=== PATIENT | female | born 1945 | race Caucasian/White ===

== ENCOUNTER 2024-02-28 11:55 | Inpatient (IN) | payer OTHER ==
[~2024-02-28] VITALS: Ht 160 cm; Wt 95.6 kg
[2024-02-28] MEDS: ASPirin 81 mg TAB PO ONE (12:34)
[2024-02-28 13:24] LABS: Basophils # (auto) 0 10 ^3/uL (0-0.2); Basophils % (auto) 0.5 % (0.0-2.0); Eosinophils # (auto) 0.1 10 ^3/uL (0-0.8); Eosinophils % (auto) 1.4 % (0.0-7.0); Hematocrit 48.1 % (36.0-46.0); Hemoglobin 15.4 g/dL (12.2-16.2); Lymphocytes # (auto) 2.3 10 ^3/uL (0.4-5.4); Lymphocytes % (auto) 26.3 % (10.0-50.0); Mean Corpuscular Hemoglobin 30.7 pg (28.0-32.0); Mean Corpuscular Volume 95.8 fL (80.0-100.0); Monocytes # (auto) 0.5 10 ^3/uL (0-1.3); Monocytes % (auto) 5.4 % (0.0-12.0); Neutrophils # (auto) 5.7 10 ^3/uL (1.6-8.6); Neutrophils % (auto) 66.4 % (37.0-80.0); Nucleated Red Blood Cells % 0.2 %; Red Blood Cells 5.02 10^6/uL (4.0-5.20); Red Cell Distribution Width 15.5 % (11.8-14.3); White Blood Cell 8.7 10^3/uL (4.4-10.8)
[2024-02-28 13:30] LABS: Chloride 111 mmol/L (98-107); Potassium 4.7 mmol/L (3.5-5.1); Sodium 144 mmol/L (136-145)
[2024-02-28 13:31] LABS: Anion Gap 9 (5-15); Carbon Dioxide 24 mmol/L (20-30)
[2024-02-28 13:32] LABS: Calcium 11.1 mg/dL (8.5-10.1)
[2024-02-28 13:36] LABS: Glucose 80 mg/dL (74-106)
[2024-02-28 13:37] LABS: BUN/Creatinine Ratio 16.1 (10.0-20.0); Blood Urea Nitrogen 18 mg/dL (9-23); Magnesium 2.2 mg/dL (1.6-2.6)
[2024-02-28] MEDS: dilTIAZem 25 MG/5 ML VIAL IV ONE (14:40)
[2024-02-28] MEDS ORDERED: ACETAMINOPHEN 325 MG TAB PO PRN (15:45)
[2024-02-28] MEDS ORDERED: FUROSEMIDE 40 MG/4 ML VIAL IV ONE (15:45)
[2024-02-28] MEDS ORDERED: MORPHINE SULFATE INJ 2 MG/ml SYRG IV PRN (15:45)
[2024-02-28] MEDS ORDERED: MORPHINE SULFATE 4 MG/ML SYR/VIAL IV PRN (15:45)
[2024-02-28] MEDS ORDERED: NITROGLYCERIN 0.4 MG SL TAB SL PRN ×2 (15:45)
[2024-02-28 16:55] LABS: INR 1.05 (0.9-1.15); Prothrombin Time 11.1 sec (9.3-11.8)
[2024-02-28 18:26] VITALS: RESP 20; O2SAT 95
[2024-02-28] MEDS ORDERED: ATOR10TA52 PO (18:28)
[2024-02-28] MEDS ORDERED: LISI20TA56 PO (18:28)
[2024-02-28] MEDS: FUROSEMIDE 40 MG/4 ML VIAL IV SCH (18:47)
[2024-02-28] MEDS ORDERED: PNEUMOCOCCAL VACC POLYS 25 MCG/0.5 ML VIAL IM ONE (19:00)
[2024-02-28 19:31] LABS: Urine Bacteria FEW /hpf (None Seen); Urine Blood Negative /uL (Negative); Urine Clarity Clear (Clear); Urine Color Light-Yellow (Yellow); Urine Protein, UAD Negative (Negative); Urine Specific Gravity 1.008 (1.001-1.035); Urine Urobilinogen Normal (Negative); Urine WBC 3 /hpf (0 - 5); Urine pH 5.5 (5.0-9.0)
[2024-02-28 20:00] VITALS: PULSE 116; RESP 15
[2024-02-28] MEDS ORDERED: POTA99TA5 PO (20:42)
[2024-02-28] MEDS ORDERED: ASPI-543 PO (20:42)
[2024-02-28] MEDS ORDERED: ASPI325T6 PO (20:42)
[2024-02-28] MEDS ORDERED: GLUC500T48 PO (20:42)
[2024-02-28 21:00] VITALS: BP 166/124; PULSE 97; RESP 16; TEMP 97.8; O2SAT 98
[2024-02-28] MEDS: ATORVASTATIN 20 MG TAB PO SCH (21:00)
[2024-02-28] MEDS: METOPROLOL TARTRATE 25 MG TAB PO SCH (21:01)
[2024-02-28] MEDS: ENOXAPARIN SOD 100 MG/1 ML SYRINGE SC SCH (21:01)
[2024-02-29] VITALS (8 sets, daily range): BP systolic 129–166; BP diastolic 64–84; PULSE 65–131; RESP 15–21; TEMP 97.3–98.7; O2SAT 95–98
[2024-02-29 06:11] LABS: Basophils # (auto) 0 10 ^3/uL (0-0.2); Basophils % (auto) 0.3 % (0.0-2.0); Eosinophils # (auto) 0.2 10 ^3/uL (0-0.8); Eosinophils % (auto) 2.9 % (0.0-7.0); Hematocrit 44.3 % (36.0-46.0); Hemoglobin 14.5 g/dL (12.2-16.2); Lymphocytes # (auto) 2.3 10 ^3/uL (0.4-5.4); Lymphocytes % (auto) 32.6 % (10.0-50.0); Mean Corpuscular Hemoglobin 31.5 pg (28.0-32.0); Mean Corpuscular Hgb Conc. 32.8 g/dL (32.0-36.0); Mean Corpuscular Volume 96.3 fL (80.0-100.0); Monocytes # (auto) 0.5 10 ^3/uL (0-1.3); Monocytes % (auto) 7.7 % (0.0-12.0); Neutrophils % (auto) 56.5 % (37.0-80.0); Nucleated Red Blood Cells % 0.2 %; Red Blood Cells 4.61 10^6/uL (4.0-5.20); Red Cell Distribution Width 15.1 % (11.8-14.3); White Blood Cell 7.1 10^3/uL (4.4-10.8)
[2024-02-29] MEDS: DOCUSATE SOD 100 MG CAP PO SCH (09:52)
[2024-02-29] MEDS: ASPirin 81 mg TAB PO SCH (09:52)
[2024-02-29 10:06] LABS: Alanine Aminotransferase 23 U/L (7-40); Albumin 3.9 g/dL (3.2-4.8); Alkaline Phosphatase 100 U/L (46-116); Anion Gap 14 (5-15); Aspartate Aminotransferase 23 U/L (13-40); Blood Urea Nitrogen 11 mg/dL (9-23); Calcium 10.6 mg/dL (8.5-10.1); Carbon Dioxide 18 mmol/L (20-30); Chloride 111 mmol/L (98-107); Glucose 74 mg/dL (74-106); LDL Cholesterol 79 mg/dL (< 100); Potassium 4.4 mmol/L (3.5-5.1); Sodium 143 mmol/L (136-145); Triglycerides 109 mg/dL (< 150)
[2024-02-29 10:07] LABS: Bilirubin, Total 0.6 mg/dL (0.2-1.0); Cholesterol 142 mg/dL (< 200); HDL Cholesterol 50 mg/dL (40-59); Total Protein 6.3 g/dL (5.7-8.2)
[2024-02-29] MEDS: SACUBITRIL-VALSARTAN 24mg/26mg TAB PO SCH (21:12)
[2024-02-29] MEDS: AMIODARONE HCL 200 MG TAB PO SCH (21:13)
[2024-02-29] MEDS: APIXABAN 5 MG TAB PO SCH (21:15)
[2024-03-01] VITALS (8 sets, daily range): BP systolic 92–135; BP diastolic 46–98; PULSE 65–121; RESP 16–20; TEMP 97.4–98.6; O2SAT 92–99
[2024-03-01 06:43] LABS: Alanine Aminotransferase 18 U/L (7-40); Albumin 3.8 g/dL (3.2-4.8); Alkaline Phosphatase 95 U/L (46-116); Anion Gap 7 (5-15); Aspartate Aminotransferase 14 U/L (13-40); BUN/Creatinine Ratio 12.6 (10.0-20.0); Bilirubin, Total 0.7 mg/dL (0.2-1.0); Blood Urea Nitrogen 16 mg/dL (9-23); Calcium 10.4 mg/dL (8.5-10.1); Carbon Dioxide 27 mmol/L (20-30); Chloride 106 mmol/L (98-107); Glucose 96 mg/dL (74-106); Potassium 3.6 mmol/L (3.5-5.1); Sodium 140 mmol/L (136-145); Total Protein 5.9 g/dL (5.7-8.2)
[2024-03-01] MEDS: ONDANSETRON HCL 4 MG/2 ML VIAL IV PRN (08:28)
[2024-03-01] MEDS: FAMOTIDINE 20 MG TAB PO SCH (11:39)
[2024-03-02] VITALS (9 sets, daily range): BP systolic 90–120; BP diastolic 48–77; PULSE 52–115; RESP 15–19; TEMP 97.2–97.9; O2SAT 91–100
[2024-03-02] MEDS ORDERED: AMIO200T33 PO (15:24)
[2024-03-02] MEDS ORDERED: AMLO1TAB22 PO (15:24)
[2024-03-02] MEDS ORDERED: APIX5TAB PO (15:24)
[2024-03-02] MEDS: FUROSEMIDE 40 MG/4 ML VIAL IV SCH (18:00)
[2024-03-03] VITALS (9 sets, daily range): BP systolic 103–145; BP diastolic 51–75; PULSE 52–65; RESP 14–19; TEMP 97.6–98.7; O2SAT 93–97
[2024-03-03 06:10] LABS: Anion Gap 9 (5-15); Carbon Dioxide 26 mmol/L (20-30); Chloride 102 mmol/L (98-107); Potassium 4.2 mmol/L (3.5-5.1); Sodium 137 mmol/L (136-145)
[2024-03-03 06:11] LABS: Calcium 10.3 mg/dL (8.5-10.1)
[2024-03-03 06:16] LABS: BUN/Creatinine Ratio 10.1 (10.0-20.0); Blood Urea Nitrogen 20 mg/dL (9-23); Glucose 97 mg/dL (74-106)
[2024-03-03 06:17] LABS: Magnesium 2.2 mg/dL (1.6-2.6)
[2024-03-03] MEDS: FAMOTIDINE 20 MG TAB PO SCH (09:15)
[2024-03-03] MEDS ORDERED: LIDOCAINE VISCOUS 2% 15ML UD PO ONE (12:00)
[2024-03-03] MEDS ORDERED: MIDAZOLAM HCL 2MG/2ML 2ml VIAL (1mg/ml) IV ONE (12:00)
[2024-03-03] MEDS ORDERED: fentaNYL CITRATE 100 MCG/2 ML VL IV ONE (12:00)
[2024-03-03] MEDS ORDERED: diphenhdrAMINE HCL 50 MG/1 ML VL IV ONE (12:00)
[2024-03-04] VITALS (7 sets, daily range): BP systolic 114–142; BP diastolic 40–82; PULSE 52–68; RESP 15–19; TEMP 97.9–98.6; O2SAT 92–100
[2024-03-04 06:17] LABS: Anion Gap 7 (5-15); Carbon Dioxide 28 mmol/L (20-30); Chloride 106 mmol/L (98-107); Potassium 3.7 mmol/L (3.5-5.1); Sodium 141 mmol/L (136-145)
[2024-03-04 06:18] LABS: Calcium 10.1 mg/dL (8.5-10.1)
[2024-03-04 06:23] LABS: BUN/Creatinine Ratio 14.8 (10.0-20.0); Blood Urea Nitrogen 21 mg/dL (9-23); Glucose 94 mg/dL (74-106)
[2024-03-04] MEDS: LACTULOSE 20Gm/30ML SOLN PO ONE (12:12)
[2024-03-04] MEDS: FUROSEMIDE 20 MG/2 ML VIAL IV ONE (15:00)
[2024-03-04] MEDS: AMIODARONE HCL 200 MG TAB PO SCH (22:18)
[2024-03-05 05:00] VITALS: BP 113/69; PULSE 55; RESP 18; TEMP 98.8; O2SAT 96
[2024-03-05 06:46] LABS: Anion Gap 5 (5-15); Carbon Dioxide 29 mmol/L (20-30); Chloride 106 mmol/L (98-107); Potassium 3.7 mmol/L (3.5-5.1); Sodium 140 mmol/L (136-145)
[2024-03-05 06:47] LABS: Calcium 10.4 mg/dL (8.7-10.4)
[2024-03-05 06:52] LABS: BUN/Creatinine Ratio 12.9 (10.0-20.0); Blood Urea Nitrogen 18 mg/dL (9-23); Glucose 101 mg/dL (74-106)
[2024-03-05 07:30] VITALS: PULSE 59
[2024-03-05 07:50] VITALS: PULSE 54; RESP 16; O2SAT 97
[2024-03-05 09:00] VITALS: BP 117/81; PULSE 54; RESP 16; TEMP 97.6; O2SAT 97
[2024-03-05] MEDS: FUROSEMIDE 20 MG/2 ML VIAL IV SCH (09:33)
[2024-03-05] MEDS ORDERED: AMIO200T33 PO (11:01)
[2024-03-05] MEDS ORDERED: ATOR20TA PO (11:01)
[2024-03-05] MEDS ORDERED: SACU1TAB PO (11:01)
[2024-03-05] MEDS ORDERED: METO25TA93 PO (11:01)
[2024-03-05] MEDS ORDERED: FURO1TAB31 PO (11:05)
[2024-03-05 12:07] VITALS: BP 117/81; PULSE 54; RESP 16; TEMP 97.6; O2SAT 97
[2024-03-05 13:00] VITALS: BP 139/57; PULSE 56; RESP 16; TEMP 97.6; O2SAT 95
== END 2024-03-05 14:57 | disposition home or self-care (01) | DRG 291 ==
LOC: ER 11:55 → TELE 15:51 → TELE-CENTR 18:09
PROVIDERS: ADMIT Nurse Practitioner Family; ATTEND Internal Medicine Geriatric Medicine
DX: I13.0 Hypertensive heart and chronic kidney disease with heart failure and stage 1 through stage 4 chronic kidney disease, or unspecified chronic kidney disease (principal); I50.21 Acute systolic (congestive) heart failure; I16.1 Hypertensive emergency; J98.11 Atelectasis; N17.9 Acute kidney failure, unspecified; I48.91 Unspecified atrial fibrillation; E66.01 Morbid (severe) obesity due to excess calories; N18.9 Chronic kidney disease, unspecified; Z80.1 Family history of malignant neoplasm of trachea, bronchus and lung; Z82.49 Family history of ischemic heart disease and other diseases of the circulatory system; Z79.82 Long term (current) use of aspirin; Z68.37 Body mass index [BMI] 37.0-37.9, adult; Z79.899 Other long term (current) drug therapy; Z79.01 Long term (current) use of anticoagulants
CPT/HCPCS: 36415; 71045; 80048; 80053; 80061; 81001; 83735; 83880; 84443; 84484; 85025; 85379; 85610; 86850; 86900; 86901; 93005; 93306; 93970; 97110; 97116; 97163; 97530; 99291; G0378; J2405